=== PATIENT | male | born 1975 | race African-American/Black ===

== ENCOUNTER → 2018-09-22 | Outpatient (CLI) | payer OTHER | END | disposition home or self-care (01) | LOC: HKI 15:34 | DX: M25.552 Pain in left hip (principal) | CPT/HCPCS: 73502 ==

== ENCOUNTER 2018-10-18 07:22 | Inpatient (IN) | payer OTHER, MEDICAID ==
[2018-10-18] MEDS: ACETAMINOPHEN 500 MG TAB PO ×3 (06:30→22:00)
[2018-10-18] MEDS: LACTATED RINGER'S 1,000 ML IV* ×2 (06:30→14:30)
[~2018-10-18 07:22] MED LIST: CEFAZOLIN 2 GM/50 ML (PMX) 50 ML IVPB
[2018-10-18] MEDS: LANSOPRAZOLE 30 MG CAP PO (07:29)
[2018-10-18] MEDS: CELECOXIB 200 MG CAP PO (07:29)
[2018-10-18] MEDS: DEXAMETHASONE 4 MG/ML 1 ML INJ IV (07:29)
[2018-10-18] MEDS: ONDANSETRON 4 MG INJ IV (07:30)
[2018-10-18] MEDS: GABAPENTIN 300 MG CAP PO ×2 (07:32→20:11)
[2018-10-18] MEDS: ACETAMINOPHEN 1000MG/100ML IV 100 ML IVPB (07:35)
[2018-10-18] MEDS ORDERED: TRANEXAMIC ACID 1GM/100ML(PMX) 200 ML (07:39)
[2018-10-18] MEDS: LACTATED RINGER'S 1,000 ML IV ×2 (07:44→13:06)
[2018-10-18] MEDS ORDERED: morphine SULFATE/PF (10 MG/10 ML) INJ (07:51)
[2018-10-18] MEDS ORDERED: MIDAZOLAM 1 MG/ML 2 ML INJ (07:51)
[2018-10-18] MEDS ORDERED: MAGNESIUM HYDROXIDE 30ML CUP PO (08:00)
[2018-10-18] MEDS ORDERED: SENNA/DOCUSATE NA (8.6MG/50MG) TAB PO (08:00)
[2018-10-18] MEDS ORDERED: MEPERIDINE 25 MG INJ IV (08:00)
[2018-10-18] MEDS ORDERED: HYDROmorphONE 1 MG/ML SYG IV (08:00)
[2018-10-18] MEDS ORDERED: FENTAnyl 50 MCG/ML VIAL IV ×3 (08:00)
[2018-10-18] MEDS ORDERED: HYDROmorphONE 1 MG/5 ML IV SYRINGE IV ×3 (08:00)
[2018-10-18] MEDS ORDERED: NA PHOSPHATE/BIPHOS 133 ML ENEMA PR (08:00)
[2018-10-18] MEDS ORDERED: ALBUTEROL 0.083% (NEB) 2.5 MG/3 ML AMP HHN (08:00)
[2018-10-18] MEDS ORDERED: DIPHENHYDRAMINE 50 MG INJ IV ×2 (08:00→12:00)
[2018-10-18] MEDS ORDERED: NACL 0.9% 3 ML SYG IV (08:00)
[2018-10-18] MEDS ORDERED: BISACODYL 10 MG SUPP PR (08:00)
[2018-10-18] MEDS ORDERED: oxyCODONE 5 MG TAB PO ×2 (08:00)
[2018-10-18] MEDS: VANCOMYCIN 1 GM (PMX) 250 ML IVPB ×2 (08:00→17:57)
[2018-10-18] MEDS ORDERED: ONDANSETRON 4 MG INJ IV (08:00)
[2018-10-18] MEDS ORDERED: METOCLOPRAMIDE 10 MG INJ IV (08:00)
[2018-10-18] MEDS ORDERED: NALOXONE (0.4 MG/ML) INJ IV (08:00)
[2018-10-18] MEDS: VANCOMYCIN 500 MG (PMX) 100 ML IVPB (08:00)
[2018-10-18] MEDS: TRANEXAMIC ACID 1GM/100ML(PMX) 100 ML PRE-OP IVPB (08:10)
[2018-10-18] MEDS ORDERED: CEFAZOLIN 1 GM INJ (08:43)
[2018-10-18] MEDS ORDERED: ROCURONIUM 50 MG INJ (08:43)
[2018-10-18] MEDS ORDERED: LIDOCAINE 100 MG SYRINGE (08:43)
[2018-10-18] MEDS ORDERED: PROPOFOL 20 ML (08:43)
[2018-10-18] MEDS ORDERED: SUCCINYLCHOLINE CHLORIDE 100 MG/5 ML SYG IV (08:43)
[2018-10-18] MEDS ORDERED: DEXAMETHASONE 4 MG/ML 5 ML INJ (08:45)
[2018-10-18] MEDS ORDERED: DESFLURANE 15 MIN (09:00)
[2018-10-18] MEDS ORDERED: FENTAnyl 50 MCG/ML VIAL (09:17)
[2018-10-18] MEDS: TRANEXAMIC ACID 1GM/100ML(PMX) 100 ML AT CLOSING IVPB ×2 (10:00)
[2018-10-18] MEDS ORDERED: SUGAMMADEX SODIUM 200 MG/2 ML VIAL IV (10:48)
[2018-10-18] MEDS: CEFAZOLIN 2 GM/50 ML (PMX) 50 ML IVPB ×2 (12:33→20:12)
[2018-10-18] MEDS: DOCUSATE SODIUM 100 MG CAP PO (13:00)
[2018-10-18] MEDS: oxyCODONE 5 MG TAB PO ×2 (16:46→22:25)
[2018-10-19] MEDS: CEFAZOLIN 2 GM/50 ML (PMX) 50 ML IVPB (04:08)
[2018-10-19] MEDS: VANCOMYCIN 1 GM (PMX) 250 ML IVPB (05:00)
[2018-10-19 05:22] LABS: ADD MAN DIFF? NO
[2018-10-19 05:32] LABS: WHITE BLOOD COUNT 14.8 10^3/ul (4.8-10.8)
[2018-10-19 05:32] LABS: ABNORMAL IP MESSAGE 1; BASOPHILS % 0.1 % (0.0-2.0); HEMATOCRIT 29.4 % (42.0-52.0); LYMPHOCYTES # 1.5 10^3/ul (0.8-2.9); LYMPHOCYTES % 9.8 % (15.0-51.0); MEAN CORPUSCULAR HEMOGLOBIN 29.6 pg (29.0-33.0); MONOCYTE # 1.5 10^3/ul (0.3-0.9); MONOCYTES % 10.3 % (0.0-11.0); NEUTROPHIL # 11.7 10^3/ul (1.6-7.5); PLATELET COUNT 203 10^3/UL (140-415); POSITIVE DIFF @See below; RED BLOOD COUNT 3.38 10^6/ul (4.70-6.10); RED CELL DISTRIBUTION WIDTH 13.1 % (11.5-14.5)
[2018-10-19 05:44] LABS: INR 1.03; PROTIME 13.6 Sec (11.9-14.9); PT RATIO 1.1
[2018-10-19 05:46] LABS: HEMOGLOBIN A1C 5.9 % (0-5.9)
[2018-10-19] MEDS: PANTOPRAZOLE (EC) 40 MG TAB PO (06:04)
[2018-10-19] MEDS: DEXAMETHASONE 10 MG/ML 1 ML INJ IV (06:05)
[2018-10-19] MEDS: BETHANECHOL 25 MG TAB PO (06:05)
[2018-10-19] MEDS: ACETAMINOPHEN 500 MG TAB PO ×2 (06:05→14:00)
[2018-10-19] MEDS: LACTATED RINGER'S 1,000 ML IV (06:07)
[2018-10-19 06:13] LABS: ANION GAP 8 (5-13); BLOOD UREA NITROGEN 15 mg/dl (7-20); CARBON DIOXIDE 26 mmol/L (21-31); CHLORIDE 104 mmol/L (97-110); CREATININE 0.82 mg/dl (0.61-1.24); Estimated GFR > 60 mL/min (>60); GLUCOSE 122 mg/dl (70-220); POTASSIUM 4.2 mmol/L (3.5-5.1); SODIUM 138 mmol/L (135-144)
[2018-10-19 06:20] LABS: ADD UMIC NO; UR ASCORBIC ACID 20 mg/dL (NEGATIVE); UR BILIRUBIN (Dip) NEGATIVE (NEGATIVE); UR BLOOD (Dip) NEGATIVE (NEGATIVE); UR CLARITY CLEAR (CLEAR); UR COLOR YELLOW (YELLOW); UR GLUCOSE (Dip) 2+ mg/dL (NEGATIVE); UR KETONES (Dip) TRACE mg/dL (NEGATIVE); UR LEUKOCYTE ESTERASE (Dip) NEGATIVE Leu/ul (NEGATIVE); UR NITRITE (Dip) NEGATIVE (NEGATIVE); UR SPECIFIC GRAVITY (Dip) 1.021 (1.003-1.030); UR TOTAL PROTEIN (Dip) NEGATIVE (NEGATIVE); UR UROBILINOGEN (Dip) NEGATIVE (NEGATIVE)
[2018-10-19 07:31] LABS: CHOLESTEROL 137 mg/dl (100-200)
[2018-10-19 07:31] LABS: CHOL/HDL RATIO 3.4 RATIO; HDL CHOLESTEROL 40 mg/dl (27-67); LDL CHOLESTEROL,CALCULATED 81 mg/dl; TRIGLYCERIDES 82 mg/dl (0-149)
[2018-10-19] MEDS ORDERED: ONDANSETRON 4 MG INJ IV (08:00)
[2018-10-19] MEDS: DOCUSATE SODIUM 100 MG CAP PO (08:11)
[2018-10-19] MEDS: ASPIRIN (EC) 81 MG TAB PO (08:11)
[2018-10-19] MEDS: ATENOLOL 25 MG TAB PO (08:12)
[2018-10-19] MEDS: oxyCODONE 5 MG TAB PO ×2 (08:15→15:44)
== END 2018-10-19 17:28 | disposition home health service (06) | DRG 470 ==
LOC: REC 07:22 → MS1 12:43
PROC: 0SRB04Z Replacement of Left Hip Joint with Ceramic on Polyethylene Synthetic Substitute, Open Approach (ICD-10-PCS; principal; 2018-10-18 07:30)
DX: M16.12 Unilateral primary osteoarthritis, left hip (principal); M87.9 Osteonecrosis, unspecified; I10 Essential (primary) hypertension; E66.9 Obesity, unspecified; Z68.27 Body mass index [BMI] 27.0-27.9, adult
CPT/HCPCS: 72170; 73500; 73530; 80048; 80061; 81003; 83036; 85025; 85610; 86850; 86900; 86901; 87086; 88304; 88311; 97116; 97161; 97167; 97530